=== PATIENT | male | born 1955 | race Caucasian/White ===

== ENCOUNTER → 2020-11-21 00:01 | Outpatient (CLI) | payer MEDICARE, SELFPAY ==
[2020-11-21 19:16] LABS: SARS-CoV-2 RNA PCR Negative
== END ==
PROVIDERS: PCP Family Medicine Adolescent Medicine; Visit Provider Internal Medicine Gastroenterology
DX: Z01.812 Encounter for preprocedural laboratory examination (principal); Z20.822 Contact with and (suspected) exposure to COVID-19
CPT/HCPCS: C9803; U0003; U0005

== ENCOUNTER 2020-11-24 01:23 | Day surgery (SDC) | payer MEDICARE, SELFPAY ==
[2020-11-11 14:24] VITALS: BMI 30.4
--- NOTE | 2020-11-24 08:13 | WPDANESEPPF ---
Anes - Initial Pre Proc Eval Procedure: Operation Date: 11/24/20 10:00 Proposed Procedures p Screening Colonoscopy - Louis Barlow DO Date/Time: 11/24/20 08:13 Surgeon: Louis Barlow DO Pre Op Diagnosis: neoplasm screening, hx of colon polyps Patient Data Age: 65 Gender: M Height: 1.93 m Weight: 113.5 kg Allergies Allergy/AdvReac Type Severity Reaction Status Date / Time No Known Allergies Allergy Verified 08/23/11 09:10 Home Medications Medication Instructions Recorded Confirmed Type No Home Medications 11/11/20 11/11/20 History Patient hx anesthesia problems: none Family hx anesthesia problems: none PMFSH Past Medical History Medical History (Updated 11/24/20 @ 08:13 by Parveen Momin DO) BPH (benign prostatic hyperplasia) Surgical History Surgical History (Updated 11/24/20 @ 08:13 by Parveen Momin DO) History of appendectomy Social History Social History Smoking packs per day: 1 Smoking cigarettes per day: 20.0 Smoking status: Former smoker Tobacco type: cigarettes Alcohol intake: current Drinks per week: 14 Substance use: never Substance use type: does not use Living arrangements: with family Spiritual care concerns: No Anes - Eval Final PreProcedure Day of Procedure 11/24/20 08:13 Patient weight: obese Heart: regular rate and rhythm Lungs: clear to auscultation and normal air movement Airway: Mallampati scale class II and special considerations poor dentition Neurological: alert and oriented Last oral intake: >/= 8 hours ASA classification: III Emergent: no Anesthetic plan: proceed Anesthesia type and monitoring: general GIVS and standard monitoring Informed Consent: The patient's anesthetic plan and its attendant risks and benefits were discussed with the patient/family/POA. Questions were solicited and answers provided to the satisfaction of the patient/family/POA.
[2020-11-24 08:56] VITALS: BP 117/78; PULSE 60; RESP 18; TEMP 36.1; O2SAT 98; BMI 29.5
[2020-11-24] MEDS: LACTATED RINGERS 1,000 ML 150 ML IV CONT (09:00)
--- NOTE | 2020-11-24 10:08 | WPDGICN ---
GI Consult Note Consult date/time: 11/24/20 10:08 HPI: Reason for visit colonoscopy. This very pleasant gentleman's seen at the request of the primary physician. Impression: Screening and surveillance colonoscopy. The patient has a history adenomatous colon polyps. BPH. Recommendation: Colonoscopy. History: This very pleasant gentleman has a negative GI review of systems. He is here for screening and surveillance colonoscopy. He has a history adenomatous colon polyps. Physical examination: General: very pleasant patient in no acute distress. HEENT: Head was normocephalic sclerae is clear mouth without masses neck was supple. Heart: Rate rhythm regular without S3 or S4. Lungs: CTA. Abdomen: Soft with no guarding or rigidity. Bowel sounds were active. Neurologic: Cranial nerves 2 through 12 intact. No focal defects. No clonus. Musculoskeletal system: Revealed no joint tenderness or swelling no muscle atrophy. Extremities: Reveal no significant edema. Skin: Warm and dry with normal turgor. Mental status: intact. Patient is alert and oriented. Review of Systems Review of Systems: All systems reviewed & are unremarkable except as noted in HPI and below PMFSH Past Medical History Medical History (Updated 11/24/20 @ 10:01 by Louis Barlow DO) Adenomatous colon polyp BPH (benign prostatic hyperplasia) Surgical History Surgical History (Updated 11/24/20 @ 10:01 by Louis Barlow DO) H/O colonoscopy History of appendectomy Social History Social History Smoking packs per day: 1 Smoking cigarettes per day: 20.0 Smoking status: Former smoker Tobacco type: cigarettes Alcohol intake: current Drinks per week: 14 Substance use: never Substance use type: does not use Living arrangements: with family Spiritual care concerns: No Meds Home Medications and Allergies Home Medications Medication Instructions Recorded Confirmed Type No Home Medications 11/11/20 11/11/20 History Allergies Allergy/AdvReac Type Severity Reaction Status Date / Time No Known Allergies Allergy Verified 08/23/11 09:10 Vital Signs Vital Signs - 24 hr 11/24/20 08:56 Temperature 36.1 C L Pulse Rate 60 Respiratory Rate 18 Blood Pressure 117/78 Pulse Oximetry 98
[2020-11-24 10:32] VITALS: BP 102/61; PULSE 64; RESP 17; O2SAT 97
[2020-11-24 10:42] VITALS: BP 112/72; PULSE 55; RESP 16; O2SAT 97
[2020-11-24 10:52] VITALS: BP 119/72; PULSE 57; RESP 16; O2SAT 96
== END 2020-11-24 10:58 | disposition home or self-care (01) ==
PROVIDERS: PCP Family Medicine Adolescent Medicine; Visit Provider Internal Medicine Gastroenterology
PROC: 0DJD8ZZ Inspection of Lower Intestinal Tract, Via Natural or Artificial Opening Endoscopic (ICD-10-PCS; CPT 45378; principal; 2020-11-24 10:00)
DX: Z12.11 Encounter for screening for malignant neoplasm of colon (principal); Z86.010 Personal history of colon polyps; N40.0 Benign prostatic hyperplasia without lower urinary tract symptoms; Z87.891 Personal history of nicotine dependence; E66.9 Obesity, unspecified; Z68.29 Body mass index [BMI] 29.0-29.9, adult; K64.8 Other hemorrhoids
CPT/HCPCS: G0105; J2001; J2704; J7120

== ENCOUNTER → 2022-06-22 08:26 | Outpatient (CLI) | payer MEDICARE, SELFPAY ==
--- NOTE | ~2022-06-22 | US_ITS ---
EXAMINATION: US aorta [facility] DATE: 06/22/2022 08:51 INDICATION: Abdominal aortic aneurysm screening, prior smoker TECHNIQUE: Grayscale, color Doppler, and pulsed Doppler images of the aorta and common iliac arteries were obtained. COMPARISON: None. FINDINGS: Maximum vascular dimensions are as follows: Proximal aorta: 2.6 cm Mid aorta: 2.6 cm Distal aorta: 2.5 cm Right common iliac artery: 1.5 cm Left common iliac artery: 1.8 cm There is no evidence of abdominal aortic aneurysm. IMPRESSION: 1. No sonographic evidence of abdominal aortic aneurysm. Reviewed, dictated and finalized at location A. ER
== END ==
PROVIDERS: PCP Family Medicine Adolescent Medicine; Visit Provider Family Medicine Adolescent Medicine
DX: Z13.6 Encounter for screening for cardiovascular disorders (principal)
CPT/HCPCS: 76706

== ENCOUNTER 2023-09-24 09:28 | Outpatient (CLI) | payer MEDICARE, SELFPAY | END 2023-09-24 09:29 | disposition home or self-care (01) | LOC: ANHSURGERY 09:35 | PROVIDERS: PCP Family Medicine Adolescent Medicine; Visit Provider Surgery | DX: K40.90 Unilateral inguinal hernia, without obstruction or gangrene, not specified as recurrent (principal); Z01.818 Encounter for other preprocedural examination | CPT/HCPCS: 36415; 86850; 86900; 86901 ==

== ENCOUNTER 2023-09-27 01:25 | Day surgery (SDC) | payer MEDICARE, SELFPAY ==
--- NOTE | 2023-09-19 09:21 | PC.NURSE ---
Report to the Outpatient Waiting Room, entrance under the green pavilion located off [facility], at time __0800 on date _09/27/23 . Planned Procedure Time: __1000 . Time changes happen often and if your time is changed the preop area will call you the afternoon before. - You and your visitor will be asked to self-screen and do not enter if you have any COVID symptoms. - A mask is optional within the hospital at this time. Patients may have clear liquids (water, carbonated beverages, clear teas, apple juice) until 3 hours prior to surgery (7 am )with a maximum of 20 ounces. - No food from midnight until time of surgery - Infants may have breast milk until 4 hours before surgery, formula 6 hours prior to surgery. - Children will be allowed to drink immediately following surgery. If applicable, please bring a bottle or sippy cup to assist with drinking. Juice, water, soda, and popsicles are readily available. For infants on formula, please bring formula the day of surgery. Pacifiers are allowed. Take the following medications with a SIP of water the morning of surgery: ___NONE DO NOT STOP ANY OF YOUR OTHER PRESCRIPTION MEDICATIONS PRIOR TO SURGERY ?EXCEPT THE FOLLOWING Medications to discontinue per physician ____NONE Date to take last dose Please no make-up, nail czech, hairspray, perfume, deodorant, or body powder the day of surgery. No jewelry (including any body piercings) or valuables the day of surgery, leave them at home. Please take a shower or bath the night before, or the morning of, surgery with an antibacterial soap. Wear comfortable, loose fitting clothing. Children are encouraged to wear pajamas. - Jewelry must be removed prior to entering the operating room. Rings and piercings that are not removed may be cut off. - The hospital will not accept responsibility for valuables. - Please leave all valuables, including medications, at home the day of surgery. If you are going home after surgery, a licensed port cdl a driver must drive you home. - NO public transportation without another adult if you receive anesthesia. - We recommend that an adult stay with you for 24 hours following discharge. - We also recommend that you do not drive, make important decision, drink alcoholic beverages, or take any drugs that were not prescribed by your health care provider for at least 24 hours after your discharge ti Follow any additional instructions given to you from your surgeon. If you or anyone in your household have experienced Covid symptoms in the past week, please notify your surgeon or the nurse liaison at the phone number below for possible testing. Telephone instructions given to __PATIENT and asked if any additional questions and then verbalized understanding. Patient advised to call surgeon office or pre surgery nurse liaison [phone] if any additional questions.
[2023-09-19 09:27] VITALS: BMI 28.0
[2023-09-27] VITALS (9 sets, daily range): BP systolic 113–131; BP diastolic 57–68; PULSE 56–70; RESP 12–16; TEMP 36.6–36.7; O2SAT 94–99
--- NOTE | 2023-09-27 03:03 | PM.IMHP ---
H&P: HPI History of Present Illness Date/Time: 09/27/23 03:03 Chief Complaint: Right inguinal hernia and umbilical hernia Narrative: Pt presents with moderate sized reducible bulge in right groin. States bulge sometimes causes soreness when standing long periods and lifting as some numbness down right thigh. No prior RIH repair in the past. He also has a small reducible umbilcial hernia. He presents today for a robotic assisted laparoscopic right inguinal hernia repair with mesh and an open umbilical hernia repair without mesh. Review of Systems Review of Systems: The remainder of the review of systems to include constitutional, HEENT, cardiovascular, respiratory, GI, , integumentary, musculoskeletal, endocrine, immunologic, hematologic, psychiatric, and neurologic are all negative except for which is mentioned above in the HPI. [facility] Past Medical History Medical History Adenomatous colon polyp BPH (benign prostatic hyperplasia) Surgical History Surgical History History of appendectomy History of arthroscopy of left knee (2002) Family History Family History Father Liver cancer Malignant neoplasm of prostate Bladder cancer Sibling Blood clotting disorder Social History Social History Smoking packs per day: 0.5 Smoking cigarettes per day: 10.0 Years smoked: 20 Smoking pack-years: 10.00 Smoking status: Former smoker Tobacco type: cigarettes Smoking end date: 07/22/08 Alcohol intake: current Drinks per week: 15 Substance use: current Substance use type: marijuana Other substance usage details: SMOKES MARIJUANA 2-3 X WK Last use: 09/18/23 Do You Feel Safe in your Home?: Yes Lack of Transportation: No Lack of Food: Never True Current Housing: I Have Housing Concerned About Future Housing: No Difficulty Paying Gas/Electric Bills: No Difficulty Paying for Meds: No Currently Unemployed: No Education: Don't Know Difficulty w/ Childcare or Family Care: No Living arrangements: with family Spiritual care concerns: No Meds Home Medications and Allergies Home Medications Medication Instructions Recorded Confirmed Type finasteride 5 mg tablet 5 mg PO DAILY #90 tabs 06/18/23 09/19/23 Rx tamsulosin 0.4 mg capsule 0.4 mg PO DAILY #90 caps 06/18/23 09/19/23 Rx Allergies Allergy/AdvReac Type Severity Reaction Status Date / Time No Known Allergies Allergy Verified 09/19/23 09:12 Exam Const: General: comfortable and no acute distress HENMT: Face/Nose/Sinus: Normal nares present Mouth: Yes moist mucous membranes Eyes: General: appearance normal, both eyes and all related structures Sclera: sclerae normal Pupils: Equal, round and reactive pupils present EOM: EOMs intact bilaterally Neck: Neck: supple and no JVD Resp: Effort & Inspection: normal respiratory effort Cardio: Rate: regular rate Rhythm: regular rhythm GI: Other: Soft, small reducible umbilical hernia with 1 cm fascial defect. Moderate sized reducible RIH, no LIH. No groin or abdominal wall rash. : Male General Exam: Yes normal external exam Skin: General skin exam: normal color and no rashes or lesions noted Neuro: General: gait normal Speech: normal speech Motor exam (neuro): 5/5 motor strength present throughout Sensory Exam: normal sensation Extrem: General: normal to inspection Psych: Mental Status: mental status grossly normal Affect: normal affect Assessment and Plan Assessment and plan (1) Right inguinal hernia: Code(s): K40.90 - Unilateral inguinal hernia, without obstruction or gangrene, not specified as recurrent Status: Acute Assessment and Plan: Will proceed with robotic assisted laparoscopic RIH repair with mes
--- NOTE | 2023-09-27 03:11 | WPDHPUPDATE1 ---
History and Physical Update Update Date/Time: 09/27/23 03:11 History and Physical has been reviewed, including an updated exam of the patient. There are NO changes in the patient's condition. Risks, benefits, and alternatives have been discussed and questions answered. Patient agrees to proceed with procedure.
[2023-09-27] MEDS: ACETAMINOPHEN 500 MG TABLET 1000 MG PO (08:49)
[2023-09-27] MEDS: LACTATED RINGERS 1,000 ML 30 ML IV CONT ×3 (09:06→13:32)
[2023-09-27] MEDS: KETOROLAC 15 MG/ML VIAL (*BKC) IV PUSH (09:06)
--- NOTE | 2023-09-27 09:20 | WPDANESEPPF ---
Anes - Initial Pre Proc Eval Procedure: Operation Date: 09/27/23 10:00 Proposed Procedures p Robotic Assisted Laparoscopic Right Inguinal Hernia Repair with Mesh - John Green MD s Open Umbilical Hernia Repair - John Green MD Date/Time: 09/27/23 09:20 Surgeon: John Green MD Pre Op Diagnosis: Reducible Rt Ing Hernia, Reducible Umb Hernia Patient Data Age: 68 Gender: M Height: 1.93 m Weight: 105.9 kg Last Vital Signs Temp 97.9 F 09/27/23 08:33 Pulse 56 L 09/27/23 08:33 Resp 16 09/27/23 08:33 BP 114/62 09/27/23 08:33 Pulse Ox 97 09/27/23 08:33 O2 Del Method Room Air 09/27/23 08:33 Allergies Allergy/AdvReac Type Severity Reaction Status Date / Time No Known Allergies Allergy Verified 09/27/23 08:45 Home Medications Medication Instructions Recorded Confirmed Type finasteride 5 mg tablet 5 mg PO DAILY #90 tabs 06/18/23 09/19/23 Rx tamsulosin 0.4 mg capsule 0.4 mg PO DAILY #90 caps 06/18/23 09/19/23 Rx Patient hx anesthesia problems: none Family hx anesthesia problems: none Results Review: All pre-operative results and documents have been reviewed as part of the pre-operative evaluation. ON LICENSE OF [facility] Past Medical History Medical History Adenomatous colon polyp BPH (benign prostatic hyperplasia) Surgical History Surgical History History of appendectomy History of arthroscopy of left knee (2002) Family History Family History Father Liver cancer Malignant neoplasm of prostate Bladder cancer Sibling Blood clotting disorder Social History Social History Smoking packs per day: 0.5 Smoking cigarettes per day: 10.0 Years smoked: 20 Smoking pack-years: 10.00 Smoking status: Former smoker Tobacco type: cigarettes Smoking end date: 07/22/08 Alcohol intake: current Drinks per week: 15 Substance use: current Substance use type: marijuana Other substance usage details: SMOKES MARIJUANA 2-3 X WK Last use: 09/18/23 Do You Feel Safe in your Home?: Yes Lack of Transportation: No Lack of Food: Never True Current Housing: I Have Housing Concerned About Future Housing: No Difficulty Paying Gas/Electric Bills: No Difficulty Paying for Meds: No Currently Unemployed: No Education: Don't Know Difficulty w/ Childcare or Family Care: No Living arrangements: with family Spiritual care concerns: No Anes - Eval Final PreProcedure Day of Procedure 09/27/23 09:20 Patient weight: obese Heart: regular rate and rhythm Lungs: clear to auscultation Airway: Mallampati scale class III (upper front tooth is glued in; may come out if bumped.) Neurological: alert and oriented Last oral intake: >/= 8 hours ASA classification: II Emergent: no Anesthetic plan: proceed Anesthesia type and monitoring: general ETT and standard monitoring Results Review: All pre-operative results and documents have been reviewed as part of the pre-operative evaluation. Informed Consent: The patient's anesthetic plan and its attendant risks and benefits were discussed with the patient/family/POA. Questions were solicited and answers provided to the satisfaction of the patient/family/POA.
--- NOTE | 2023-09-27 09:23 | WPDHPUPDATE1 ---
History and Physical Update Update Date/Time: 09/27/23 09:23 History and Physical has been reviewed, including an updated exam of the patient. There are NO changes in the patient's condition. Risks, benefits, and alternatives have been discussed and questions answered. Patient agrees to proceed with procedure.
[2023-09-27] MEDS: ceFAZolin 2 GM/D5W 50 ML 2 GM/50 ML BAG IVPB (09:47)
[2023-09-27] MEDS: LIDO 1%/EPINEPHRINE 1:100,000 50 ML VIAL 30 ML INFILTRATE (10:44)
[2023-09-27] MEDS: BUPivacaine HCL 0.5% 10 ML AMP 30 ML INFILTRATE (10:44)
--- NOTE | 2023-09-27 12:16 | W.PM.PROC2 ---
Procedure Note - Detailed Date of Procedure 09/27/23 Pre-op Diagnosis Reducible Rt Ing Hernia, Reducible Umb Hernia Post-op Diagnosis Same Procedure Performed Robotic assisted laparoscopic right inguinal hernia repair Bard 3D mid weight mesh Open umbilical hernia repair without mesh Surgeon John Green MD Business Unit Manager Mark Cohen, [employer] Anesthesia General Indications Patient is a 68-year-old gentleman presented with a right groin bulge which was enlarging causing him to have pain and some numbness down his right 5. It was reducible. Was consistent with a moderate-sized right inguinal hernia without scrotal extension. He also had a primary umbilical hernia ventral defect measuring about 2cm in diameter. He presents now for a robotic assisted laparoscopic right inguinal hernia repair with mesh and an open umbilical hernia repair without mesh. Findings The umbilical hernia was reducible and the defect measured approximately 2cm in diameter. It was repaired without mesh primarily with suture. The right inguinal hernia was a large indirect inguinal hernia without evidence of direct component. No cord lipoma was seen. No evidence of left inguinal hernia. Description of Procedure After informed consent was obtained patient brought to the operating room was placed supine position and general endotracheal anesthesia was administered. The abdomen and bilateral groin regions were then prepped and draped usual sterile fashion. A time-out was then performed correctly identifying the patient as well as procedure to be performed verifying site marking. He was given perioperative IV antibiotics. I started by placing a 10mm Optiview port in left upper quadrant with a direct optical insertion. Once inside the abdomen insufflated to adequate pneumoperitoneum of 15mmHg of CO2. Looking into the abdomen I could see large indirect right inguinal hernia without any incarcerated contents. There is no evidence of a left inguinal hernia. The umbilical fascial defect was about 2cm in diameter and had no incarcerated contents. I 1st additional robotic trocar ports are across the mid abdomen. The patient was then placed in the Trendelenburg position fit with 15? head down. The [employer] robot was then brought to the patient's bedside and docked and the robotic arms were attached the robotic ports. Robotic instruments were then advanced into the abdomen under direct visualization. I then scrubbed out the procedure sent down robotic console to perform dissection robotically for the right inguinal hernia repair. I started a preperitoneal flap across the lower right abdominal wall and extended just anterior medial to the right anterior superior iliac spine to the midline were divided the right side the medial umbilical ligament. I dissected down through this avascular preperitoneal plane to the internal ring the indirect inguinal hernia sac within it. I also dissected medially down to the pubic tubercle and down to the space of Retzius for couple of cm. I then proceeded to dissect the large indirect inguinal hernia sac and the inguinal canal and from the vas deferens and testicular vessels which were preserved without injury. The hernia sac was everted and then the peritoneal flap was dissected proximally up onto the psoas muscle proximal to where the vas deferens and testicular vessels divide. There is no evidence of a femoral component to the right inguinal hernia. No evidence of a direct component either. Once I had the peritoneal flap dissected proximally enough that edge of the mesh would not roll up with closure of the peritoneum I then used a large piece of Bard 3D mid weight mesh measuring 16cm in length by 10cm in width conforming to the right groin region and placed into the dissected space. The medial part of the mesh was secured over the pubic tubercle and the edge extended down to the space of Retzius. It was secured in place with some 2-0 Vicryl sutures at the
[2023-09-27] MEDS: fentaNYL CITRATE INJ (*CRX) 100 MCG/2 ML VIAL 25 MCG IV PUSH ×4 (12:59→13:29)
[2023-09-27] MEDS: oxyCODONE HCL (*CRX) 5 MG TAB IR PO (14:07)
== END 2023-09-27 14:40 | disposition home or self-care (01) ==
PROVIDERS: PCP Family Medicine Adolescent Medicine; Visit Provider Surgery
PROC: 8E0Y4CZ Robotic Assisted Procedure of Lower Extremity, Percutaneous Endoscopic Approach (ICD-10-PCS; CPT 49650; principal; 2023-09-27 10:00)
PROC: 0WQF0ZZ Repair Abdominal Wall, Open Approach (ICD-10-PCS; CPT 49650; 2023-09-27 10:00)
DX: K40.90 Unilateral inguinal hernia, without obstruction or gangrene, not specified as recurrent (principal); K42.9 Umbilical hernia without obstruction or gangrene; N40.0 Benign prostatic hyperplasia without lower urinary tract symptoms; F12.90 Cannabis use, unspecified, uncomplicated; E66.9 Obesity, unspecified; Z68.28 Body mass index [BMI] 28.0-28.9, adult; Z98.890 Other specified postprocedural states; Z87.891 Personal history of nicotine dependence; Z86.010 Personal history of colon polyps; Z80.0 Family history of malignant neoplasm of digestive organs; Z80.42 Family history of malignant neoplasm of prostate; Z80.52 Family history of malignant neoplasm of bladder
CPT/HCPCS: 49650; 49591; S2900; A9270; C1781; J0690; J1100; J1885; J2250; J2405; J2704; J3010; J7030; J7120

== ENCOUNTER 2024-03-29 22:54 | Emergency (ER) | payer MEDICARE, SELFPAY ==
--- NOTE | ~2024-03-29 | CT_ITS ---
CT of the Abdomen and Pelvis: Indication: Abdominal pain Technique: 2.5 mm axial scans were obtained through the abdomen and pelvis following intravenous adm inistration of 100 cc of Omnipaque 350. Dose reduction technique was used on this scan by utilizing a utomated exposure control and iterative reconstruction technique. The dose-length product (DLP) was 1 295.06 mGy-cm. Findings: Scans through the lung bases demonstrate partially imaged irregular focal consolidation th e right lower lobe.. The liver, spleen, pancreas, gallbladder, and adrenal glands are unremarkable. Possible minimal left hydroureteronephrosis. Small bilateral renal cysts present. There are atherosclerotic calcifications of the aorta. No lymphadenopathy. No bowel obstruction or bowel wall thickening. There is no evidence to suggest acute appendicitis. Images through the pelvis were performed. Urinary bladder unremarkable. No pelvic mass evident. No as cites. Impression: Partially imaged irregular focal consolidation or nodule the right lower lobe. Findings could reflect focal pneumonia versus neoplastic lesion. Dedicated chest CT recommended to further evaluate. Minimal left hydroureteronephrosis. Correlate for recently passed stone. Reviewed, dictated and finalized at [facility]. Impression: Partially imaged irregular focal consolidation or nodule the right lower lobe. Findings could reflect focal pneumonia versus neoplastic lesion. Dedicated ches t CT recommended to further evaluate. Minimal left hydroureteronephrosis. Correlate for recently passed stone.
[2024-03-29 23:00] VITALS: BP 151/84; PULSE 76; RESP 17; TEMP 36.3; O2SAT 99
[2024-03-29 23:14] LABS: Basophils Absolute Auto 0.1 K/mm3 (0.0-0.1); Basophils Percent Auto 0.9 % (0.2-1.2); Eosinophils Absolute Auto 0.5 K/mm3 (0-0.3); Eosinophils Percent Auto 6.6 % (0-4.4); Hematocrit 48.3 % (42.0-52.0); Hemoglobin 16.1 g/dL (14.0-18.0); Immature Granulocyte Absolute 0.03 K/mm3 (0.00-0.031); Immature Granulocyte Percent A 0.4 % (0-0.5); Lymphocytes Absolute Auto 2.05 K/mm3 (0.9-3.2); Lymphocytes Percent Auto 26.1 % (18.3-44.2); Mean Corpuscular HGB Conc 33.3 g/dl (32-36); Mean Corpuscular Hemoglobin 30.9 pg (26-34); Mean Corpuscular Volume 92.7 fl (80-100); Monocytes Percent Auto 13.1 % (2.6-8.5); Neutrophils Absolute Auto 4.1 K/mm3 (1.3-6.7); Neutrophils Percent Auto 52.9 % (45.5-73.1); Platelet Count Result 169 k/mm3 (150-375); Red Blood Count 5.21 M/mm3 (4.6-6.20); White Blood Count 7.8 K/mm3 (4.5-10.0)
[2024-03-29 23:24] LABS: Alanine Aminotransferase 20 U/L (6-50); Albumin Level 4.3 g/dL (3.5-5.1); Alkaline Phosphatase 71 U/L (38-126); Anion Gap 8 mmol/L (4-12); Aspartate Amino Transferase 30 U/L (17-59); Bilirubin,Total 0.6 mg/dL (0.2-1.3); Blood Urea Nitrogen 21 mg/dL (9-20); Calcium 9.3 mg/dL (8.4-10.2); Carbon Dioxide 28 mmol/L (22-30); Chloride 103 mmol/L (98-107); Estimated CRCL calculation 83 ml/min; Estimated Glomerular Filt Rate > 60; Glucose 107 mg/dL (65-110); Lipase 242 U/L (23-300); Potassium 4.3 mmol/L (3.4-5.0); Sodium 139 mmol/L (137-145)
[2024-03-29 23:24] LABS: Add Urine Microscopic? YES; Appearance Urine Clear (Clear); Bacteria Urine None Seen /hpf; Bilirubin Urine Negative (Negative); Blood Urine 2+ (Negative); Color Urine Yellow (Yellow); Glucose Urine UA Negative (Negative); Ketones Urine Negative (Negative); Leukocyte Esterase Ur Negative LEU/UL (Negative); Nitrate Urine Negative (Negative); Non Pathogenic Casts 0-2; Protein Urine Negative (Negative); Specific Grav Ur 1.025 (1.001-1.035); Squamous Epithelial Cell Urine None Seen /hpf (Few); WBC Urine 0-5 /hpf (0-3)
[2024-03-30 00:39] VITALS: PULSE 75; RESP 17; O2SAT 97
[2024-03-30] MEDS: ONDANSETRON INJ 4 MG/2 ML VIAL IV PUSH (00:39)
--- NOTE | 2024-03-30 01:26 | ED.ABDPAIN ---
HPI - Abdominal Pain General Chief Complaint: Abdominal Pain Stated Complaint: acute pain in abd Time Seen by Provider: 03/30/24 00:29 History of Present Illness HPI narrative: Patient states that he just had Qatari food and then started having left-sided abdominal pain, nausea vomiting. No diarrhea. Related Data Allergies Allergy/AdvReac Type Severity Reaction Status Date / Time No Known Allergies Allergy Verified 03/30/24 00:39 Review of Systems Review of Systems: All systems reviewed & are unremarkable except as noted in HPI and below PMFSH Past Medical History Medical History Adenomatous colon polyp BPH (benign prostatic hyperplasia) Surgical History Surgical History (Updated 10/08/23 @ 09:52 by WOO Duron) History of appendectomy History of arthroscopy of left knee (2002) History of hernia repair Robotic assisted laparoscopic right inguinal hernia repair Bard 3D mid weight mesh Open umbilical hernia repair without mesh 09/10/23 History of umbilical hernia repair (09/2023) Family History Family History Father Liver cancer Malignant neoplasm of prostate Bladder cancer Sibling Blood clotting disorder Social History Social History Smoking packs per day: 0.5 Smoking cigarettes per day: 10.0 Years smoked: 20 Smoking pack-years: 10.00 Smoking status: Former smoker Tobacco type: cigarettes Smoking end date: 07/22/08 Alcohol intake: current Drinks per week: 15 Substance use: current Substance use type: marijuana Other substance usage details: SMOKES MARIJUANA 2-3 X WK Last use: 09/18/23 Do You Feel Safe in your Home?: Yes Lack of Transportation: No Lack of Food: Never True Current Housing: I Have Housing Concerned About Future Housing: No Difficulty Paying Gas/Electric Bills: No Difficulty Paying for Meds: No Currently Unemployed: No Education: Don't Know Difficulty w/ Childcare or Family Care: No Living arrangements: with family Spiritual care concerns: No Exam Narrative: EXAMINATION OF ORGAN SYSTEMS/BODY AREAS: Constitutional: Vital signs per nursing GENERAL:[No acute distress, non-toxic appearing.] HEAD: Normal with no signs of head trauma. EYES: EOMI, conjunctiva normal ENT: Hearing grossly intact LUNGS: Nonlabored breathing. HEART: [Regular rate and rhythm] ABD: [Soft], no significant tenderness on abdomen EXT: Normal range of motion SKIN: [No rashes or lesions.] NEURO: [Alert and oriented x 3. No gross focal sensory or strength deficits.] PSYCH: Normal affect Course Vital Signs Vital signs: Vital Signs Temperature 97.4 F L 03/29/24 23:00 Pulse Rate 76 03/29/24 23:00 Respiratory Rate 17 03/29/24 23:00 Blood Pressure 151/84 H 03/29/24 23:00 Pulse Oximetry 99 03/29/24 23:00 Oxygen Delivery Room Air 03/29/24 23:00 Temperature 97.4 F L 03/29/24 23:00 Pulse Rate 75 03/30/24 00:39 Respiratory Rate 17 03/30/24 00:39 Blood Pressure 151/84 H 03/29/24 23:00 Pulse Oximetry 97 03/30/24 00:39 Oxygen Delivery Room Air 03/29/24 23:00 MDM - Abdominal Pain MDM Narrative Medical decision making narrative: 68-year-old male presents here with left-sided abdominal pain with nausea vomiting, after eating Qat[place] food, labs within acceptable limits, urine does have some rbc's/blood, she is given Zofran, patient did come up afterwards and stated that he would like to go at this time as he feels much better. I did let him know that since the CT has not come back yet I cannot say for sure if everything is fine, patient expresses understanding and the risks of leaving at this time without CT results, he would still prefer to leave. He understands that he can always return to the ER if he changes his mind or if pain returns.
== END 2024-03-30 02:25 | disposition home or self-care (01) ==
PROVIDERS: Emergency Provider Emergency Medicine; PCP Family Medicine Adolescent Medicine
DX: R11.2 Nausea with vomiting, unspecified (principal); R10.9 Unspecified abdominal pain; N40.0 Benign prostatic hyperplasia without lower urinary tract symptoms
CPT/HCPCS: 36415; 74177; 80053; 81001; 83690; 85025; 96374; 99284; J2405; Q9967

== ENCOUNTER 2024-04-06 09:16 | Outpatient (CLI) | payer MEDICARE, SELFPAY ==
--- NOTE | ~2024-04-06 | CT_ITS ---
EXAMINATION: CT diagnostic chest wo con DATE: 04/06/2024 09:30 INDICATION: Other nonspecific abnormal finding of lung field TECHNIQUE: Computed tomography (CT) of the chest was performed without intravenous contrast. Addition al 3D reconstructions utilizing coronal maximum intensity projection (MIP) were performed. Automated exposure control and iterative reconstruction technique were employed. The dose-length product was 23 8.55 mGy-cm. COMPARISON: None FINDINGS: Moderate upper lung predominant emphysema. No significant interval change in a 2.4 x 2.1 cm spiculate d nodule at the junction of the superior and basilar segments of the right lower lobe. Mild dependent and basilar atelectasis in the bilateral lower lobes. No pulmonary edema or pleural effusion. Heart size is normal. Small amount of atherosclerotic coronary artery calcification. No pericardial effusio n. Thoracic aorta is normal in caliber. No pathologically enlarged thoracic lymphadenopathy. And visu alized upper abdomen is unremarkable. Mild to moderate thoracic spondylosis. IMPRESSION: 1. Moderate emphysema with unchanged 2.4 x 2.1 cm spiculated right lower lobe mass which could be inf ectious or malignant in etiology. Would consider percutaneous CT-guided biopsy in 2-3 weeks. Should s cout imaging at that time demonstrate interval evolution favoring an infectious or inflammatory proce ss, the biopsy could be deferred in favor of continued CT follow-up. Reviewed, dictated and finalized at location B. IMPRESSION: 1. Moderate emphysema with unchanged 2.4 x 2.1 cm spiculated right lower lobe m ass which could be infectious or malignant in etiology. Would consider percutan eous CT-guided biopsy in 2-3 weeks. Should timekeeper imaging at that time demonstra te interval evolution favoring an infectious or inflammatory process, the biops y could be deferred in favor of continued CT follow-up.
== END 2024-04-06 09:17 | disposition home or self-care (01) ==
PROVIDERS: PCP Family Medicine Adolescent Medicine; Visit Provider Family Medicine Adolescent Medicine
DX: R91.8 Other nonspecific abnormal finding of lung field (principal); J43.9 Emphysema, unspecified
CPT/HCPCS: 71250

== ENCOUNTER 2024-05-07 06:35 | Outpatient (CLI) | payer MEDICARE, SELFPAY ==
--- NOTE | 2024-04-30 08:41 | PC.NURSE ---
Pre Radiology instructions Report to the outpatient kristy perez on date _[id number]_ at time _0900_ for procedure Time: _1100_ YOU MAY BE MONITORED AT HOSPITAL FOR UP TO 4 HOURS AFTER YOUR PROCEDURE. A visitor will be allowed to accompany the patient into the hospital. You and your visitor will be asked to self-screen and do not enter if you have any COVID symptoms. A mask is OPTIONAL within the hospital. Patients are to have no food or drink 6 hours prior to procedure time Driving will be restricted after the procedure, you must have a person to drive you home. Labs will be drawn in preop area and once reviewed, you will be taken to radiology area for procedure. When the procedure is completed, you will be taken to outpatient where you will be monitored for several hours. You may have one visitor in this area. Other than holding anti-coagulants, patient may take other medication(s) as scheduled. Prior to your appointment date patients are instructed to hold anti-coagulants after discussing with ordering provider to stop. If unable to discontinue anti-coagulants please notify radiologist. ? No aspirin or warfarin (Coumadin) for 7 days prior to the procedure. ? No clopidogrel (Plavix), ticagrelor (Brilinta), prasugrel (Effient) or dabigatran (Pradaxa) for 5 days prior to the procedure. ? No rivaroxaban (Xarelto), apixaban (Eliquis), dipyridamole (Aggrenox or Persantine) or cilostazol (Pletal) for 2 days prior to the procedure. Medications to discontinue per physician: __None Date to take last dose: Please leave all valuables, including medications, at home the day of procedure. The hospital will not accept responsibility for valuables. Wear comfortable, loose fitting clothing.? Follow any additional instructions given to you from ordering provider. Telephone instructions given to __Jose Luis___and asked if any additional questions and then verbalized understanding. Patient advised to call scheduling provider office or registration scheduling [phone] if any additional questions.
--- NOTE | ~2024-05-07 | XR_ITS ---
EXAMINATION: XR chest 1V portable DATE: 05/07/2024 14:59 INDICATION: Status post percutaneous right lung biopsy TECHNIQUE: frontal view of the chest was obtained. COMPARISON: Chest radiograph dated earlier on 05/07/2024 FINDINGS: The biopsied right lower lobe nodule is nearly indiscernible obscured by the inferior right hilum. No airspace opacities, pulmonary edema, pleural effusion or pneumothorax. The cardiomediastinal silhoue tte is normal. IMPRESSION: 1. No pneumothorax or other acute cardiopulmonary disease. 2. The biopsied right lower lobe nodule is partially obscured by the superimposed right infrahilar va sculature and which remains concerning for primary bronchogenic carcinoma. Reviewed, dictated and finalized at location A. IMPRESSION: 1. No pneumothorax or other acute cardiopulmonary disease. 2. The biopsied right lower lobe nodule is partially obscured by the superimpos ed right infrahilar vasculature and which remains concerning for primary bronch ogenic carcinoma.
--- NOTE | ~2024-05-07 | XR_ITS ---
EXAMINATION: XR chest 1V DATE: 05/07/2024 12:08 INDICATION: Status post right lung biopsy TECHNIQUE: frontal view of the chest was obtained. COMPARISON: Chest CT dated 04/06/2024 FINDINGS: Focal airspace opacity in the right infrahilar region corresponding to the biopsied right lower lobe nodule and likely expected small amount of postbiopsy pulmonary hemorrhage. No other airspace opaciti es, pulmonary edema, pleural effusion or pneumothorax. Increased lucency at the apices consistent wit h emphysema. Heart size is normal. IMPRESSION: 1. Right infrahilar opacity consistent with the biopsied right lower lobe nodule and expected small a mount surrounding pulmonary hemorrhage. No pneumothorax. Reviewed, dictated and finalized at location A. IMPRESSION: 1. Right infrahilar opacity consistent with the biopsied right lower lobe nodul e and expected small amount surrounding pulmonary hemorrhage. No pneumothorax.
--- NOTE | ~2024-05-07 | CT_ITS ---
EXAMINATION: CT biopsy lung w/imaging DATE: 05/07/2024 12:19 INDICATION: Right lower lobe mass TECHNIQUE: The procedure including the risks and benefits was discussed with the patient. Risks discu ssed included infection, approximately 1/20 risk of symptomatic hemorrhage beyond mild hemoptysis, ap proximately 1/3 risk of pneumothorax, and approximately 1/10 risk of pneumothorax severe enough to wa rrant chest tube placement. The patient understood the risks and agreed to proceed. The patient was p laced prone. The skin overlying the posterior inferior right chest was prepped and draped in sterile fashion. Anesthetic was administered with 1% lidocaine subcutaneously. A 19 gauge outer needle was advanced under CT guidance to the lesion of interest. A 20 gauge core biopsy needle was then used to obtain 4 core biopsy specimens. The needle was removed and the entry site was cleaned and dressed. There were no immediate complications. The dose-length product was 477.15 mGy-cm. FINDINGS: CT images demonstrate the outer needle tip adjacent to a 3.0 x 1.9 cm spiculated right lowe r lobe nodule. The biopsy needle can be seen passing through the nodule in one of the series of imagi ng. IMPRESSION: 1. Successful CT-guided biopsy of a 3.0 x 1.9 cm spiculated right lower lobe nodule which is concerni ng for malignancy. Reviewed, dictated and finalized at location A. IMPRESSION: 1. Successful CT-guided biopsy of a 3.0 x 1.9 cm spiculated right lower lobe no dule which is concerning for malignancy.
--- NOTE | ~2024-05-07 | XR_ITS ---
EXAMINATION: XR chest 1V portable DATE: 05/07/2024 13:16 INDICATION: Status post percutaneous right lung biopsy TECHNIQUE: frontal view of the chest was obtained. COMPARISON: Chest radiograph dated 05/07/2024 at 12:06 PM FINDINGS: Decrease in the previously seen right infrahilar opacity consistent with resolving postbiopsy pulmona ry hemorrhage surrounding the biopsied nodule which remains concerning for primary bronchogenic carci noma. No other airspace opacities, pulmonary edema, pleural effusion or pneumothorax. Emphysema with lucent bullous changes at the The bilateral apices. Cardiomediastinal silhouette is normal. IMPRESSION: 1. Significant decrease in prior postbiopsy pulmonary hemorrhage surrounding the biopsied right lower lobe nodule which remains concerning for primary bronchogenic carcinoma. 2. No pneumothorax or pleural effusion. Reviewed, dictated and finalized at location A. IMPRESSION: 1. Significant decrease in prior postbiopsy pulmonary hemorrhage surrounding th e biopsied right lower lobe nodule which remains concerning for primary broncho genic carcinoma. 2. No pneumothorax or pleural effusion.
[2024-05-07 09:53] LABS: Mean Platelet Volume 9.8 fl (7.4-10.4); Platelet Count Result 155 k/mm3 (150-375)
[2024-05-07 09:55] VITALS: BP 127/69; PULSE 58; RESP 16; TEMP 36.2; O2SAT 98; BMI 29.9
[2024-05-07 10:11] LABS: INR 0.9; Prothrombin Time 12.6 Seconds (11.1-14.7)
[2024-05-07 12:10] VITALS: BP 143/69; PULSE 57; RESP 20; O2SAT 100
[2024-05-07 12:25] VITALS: BP 144/70; PULSE 60; RESP 20; O2SAT 100
[2024-05-07 13:00] VITALS: BP 140/69; PULSE 72; RESP 20; O2SAT 100
[2024-05-07 14:00] VITALS: BP 126/69; PULSE 70; RESP 20; O2SAT 100
[2024-05-07 15:00] VITALS: BP 130/72; PULSE 70; RESP 20; O2SAT 100
== END 2024-05-07 15:20 | disposition home or self-care (01) ==
PROVIDERS: PCP Family Medicine Adolescent Medicine; Visit Provider Radiology Diagnostic Radiology
PROC: BB24ZZZ Computerized Tomography (CT Scan) of Bilateral Lungs (ICD-10-PCS; CPT 32408; principal; 2024-05-07 11:00)
DX: R91.8 Other nonspecific abnormal finding of lung field (principal)
CPT/HCPCS: 32408; 36415; 71045; 85049; 85610; 88305